=== PATIENT | female | born 1960 | race Caucasian/White ===

== ENCOUNTER → 2017-08-20 | Outpatient (CLI) | payer BC | LOC: M WHC 09:02 | DX: Z12.31 Encounter for screening mammogram for malignant neoplasm of breast (principal); Z78.0 Asymptomatic menopausal state | CPT/HCPCS: 77067 ==

== ENCOUNTER → 2017-08-20 | Outpatient (REF) | payer OTHER | LOC: M SFHCWAGY 11:55 | DX: Z12.4 Encounter for screening for malignant neoplasm of cervix (principal) | CPT/HCPCS: G0123 ==

== ENCOUNTER → 2018-10-02 | Outpatient (CLI) | payer BC ==
--- NOTE | 2018-10-02 14:20 | REP ---
BILATERAL MAMMOGRAPHY WITH 3D TOMOSYNTHESIS: There is no family history of breast cancer. [facility] lifetime risk of breast cancer is 8.1%. Comparison made with prior study of 08/20/2017 as well as other prior exams. There is moderate heterogenous fibroglandular tissue bilaterally with no suspicious mass or architectural distortion. There appear to be new tiny calcifications in the upper outer quadrant of the right breast for which magnification views are recommended. IMPRESSION: BIRADS 0: BI-RADS/ACR category 0 mammogram, Incomplete: Need additional imaging evaluation and/or prior mammograms for comparison. ACR 0 incomplete. New tiny calcifications in the upper outer quadrant of the right breast. Recommend magnification views to further evaluate. This mammogram was interpreted with the aid of an FDA-approved computer-aided detection system. The patient states she/he had a clinical breast exam in 09/2018. The patient letter being requested is M0. Electronically Signed by Randy Hoagn MD 10/06/2018 05:35 P
== END ==
LOC: M WHC 11:35
PROVIDERS: ATTEND Nurse Practitioner Women's Health
DX: R92.2 Inconclusive mammogram (principal)

== ENCOUNTER → 2018-11-02 | Outpatient (CLI) | payer BC, OTHER ==
--- NOTE | 2018-11-03 12:09 | REP ---
DIAGNOSTIC MAMMOGRAM RIGHT BREAST: Magnification views of the right breast performed of the upper outer quadrant of the right breast and correlated with a recent mammogram of 10/02/2018. These magnification views show a cluster of tiny pleomorphic microcalcifications, at least 5 or 6 in number. These are new. Recommend stereotactic biopsy. IMPRESSION: There are 5 or 6 clustered pleomorphic microcalcifications in the outer right breast, somewhat posteriorly. These appear somewhat suspicious and are new. Recommend stereotactic biopsy. Patient letter requested is M4. Electronically Signed by Randy Hoang MD 11/04/2018 12:03 A
== END ==
LOC: M RAD 10:30
PROVIDERS: ATTEND Nurse Practitioner Women's Health
DX: N63.11 Unspecified lump in the right breast, upper outer quadrant (principal)